=== PATIENT | male | born 1950 | race Caucasian/White ===

== ENCOUNTER → 2021-01-03 09:18 | Outpatient (CLI) | payer MEDICARE, SELFPAY | PROVIDERS: PCP Family Medicine; Visit Provider Family Medicine | DX: Z20.822 Contact with and (suspected) exposure to COVID-19 (principal) | CPT/HCPCS: U0003 ==

== ENCOUNTER → 2022-01-31 08:09 | Outpatient (CLI) | payer MEDICARE, SELFPAY | PROVIDERS: PCP Family Medicine; Visit Provider Family Medicine | DX: Z11.52 Encounter for screening for COVID-19 (principal) | CPT/HCPCS: C9803; U0003; U0005 ==

== ENCOUNTER 2024-06-16 10:08 | Outpatient (CLI) | payer MEDICARE, SELFPAY ==
--- NOTE | 2024-06-16 10:20 | CT_ITS ---
FINAL REPORT TECHNIQUE: Postcontrast images of the left upper extremity were performed by computed tomography. Extensive 3-D reconstruction images were performed. A CTA was performed. This study was performed with techniques to keep radiation doses as low as reasonably achievable (ALARA). Individualized dose reduction techniques using automated exposure control or adjustment of mA and/or kV according to the patient''s size were employed. CLINICAL HISTORY: LUE, CELLULITIS COMPARISON: None FINDINGS: CTA: The subclavian, brachial, radial, and ulnar arteries are patent without evidence of stenosis or occlusion. Bony structures: There is no evidence of fracture. No dislocation is seen. There are moderate degenerative changes in the shoulder. Soft tissues: Posteriorly, there is significant soft tissue swelling overlying the olecranon. This may be due to bursitis or cellulitis. There is a 4.7 cm low-attenuation mass posterior to the olecranon which may represent olecranon bursitis or possible abscess. IMPRESSION: 4.7 cm mass posterior to the olecranon may represent olecranon bursitis or possible abscess. Soft tissue swelling overlying the olecranon may represent bursitis or cellulitis. Reviewed, Interpreted and Dictated by Brent Bejarano III, MD Transcribed by Sintia Wilson Authenticated and [facility]
[2024-06-16] MEDS: SODIUM CHLORIDE 0.9% 10ML SYR (RAD ONLY) 10 ML IV (11:27)
[2024-06-16] MEDS: IOPAMIDOL-370 (76%);100ML BOTTLE 100 ML IV (11:27)
[2024-06-16] MEDS: 0.9 % SODIUM CHLORIDE 50 ML VIAL IV (11:27)
== END 2024-06-16 23:59 | disposition home or self-care (01) ==
LOC: RAD 10:09
PROVIDERS: PCP Family Medicine; Visit Provider Family Medicine
DX: L03.114 Cellulitis of left upper limb (principal)
CPT/HCPCS: 73206; Q9967

== ENCOUNTER 2025-06-03 12:40 | Outpatient (CLI) | payer MEDICARE, SELFPAY ==
--- OUTSIDE RECORDS SUMMARY | 2025-05-12 10:30 | XMS_ITS | Encounter Summary ---
Author Organization [facility] Address [address] [place] [address] Care Team Providers Care Home Care Consultant Name Role Phone London Blank MD Primary Care Provider [phone] [phone] Reason for Visit * Reason Comments Mixed hyperlipidemia Encounter Details Date Type Department Care Team (Late st Contact Info) Description 05/12/2025 10:30 AM EDT Office Visit [facility] CARDIOLOGY [address] [place] [phone] Gareth Alvarado MD [address] [facility] [address] [place] [address] RBBB (Primary Dx); Primary hypertension; Mixed hyperlipidemia Social History Tobacco Use Types Packs/Day Years Used Date Smoking Tobacco: Never Passive Smoke Exposure: Never Smokeless Tobacco: Never Alcohol Use Standard Drinks/Week Comments Yes 2 (1 standard drink = 0.6 oz pur e alcohol) OCASSIONALLY AUDIT-C Answer Date Recorded Frequency of Alcohol Consumption Not on file 12/01/2020 Q2: How many drinks containi ng alcohol do you have on a typical day when you are drinking? 1 or 2 12/01/2020 Frequency of Binge Drinking Not on file 11/07 Sex and Gender Information Value Date Recorded Sex Assigned at Not on file Legal Sex Male 1:08 PM EDT Gender Identity Not on file Sexual Orientation Not on file documented as of this encounter Last Filed Vital Signs Vital Sign Reading Time Taken Comments Blood Pressure 160/94 05/12/2025 10:22 AM EDT Pulse 48 05/12/2025 10:22 AM EDT Temperature - - Respiratory Rate - - Oxygen Saturation 98% 05/12/2025 10:22 AM EDT Inhaled Oxygen Concentration - - Weight 96 kg (211 lb 9.6 oz) 05/12/2025 10:22 AM EDT Height 194.3 cm (6' 4.5 ) 05/12/2025 10:22 AM ED T Body Mass Index 25.42 05/12/2025 10:22 AM EDT documented in this encounter Progress Notes * Gareth Alvarado MD - 05/12/2025 10:30 AM EDTAssociated Order(s): ECG 12 Lead Post-Procedure Diagnose(s): RBBB [facility] Cardiology Office Progress Note Ranjan Sanchez 1950 [address] [facility] [address] [place] [id number] Visit Date: 05/12/25 PCP: London Blank MD [address] [facility] [address] [place] [address] IDENTIFICATION: 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 formally from [facility] PROBLEM LIST: HTN HLD 12/23 126/76/33/78 Remote cardiac eval SJ H remote stress test, echo, Holter-benign 12/18/2018 CUS bilateral ICA 0 to 49% stenosis BPH GERD RBBB 2021 Surgical history: Blepharoplasty Prostate biopsy Minor back surgery Cholecystectomy CC: Chief Complaint Patient presents with Mixed hyperlipidemia Allergies No Known Allergies Current Medications Current Outpatient Medications Medication Instructions aspirin 81 mg, Daily cholecalciferol (VITAMIN D3) 1,000 Units, Daily Cobalamin Combinations (B-12) 100-5000 MCG sublingual tablet Daily coenzyme Q10 100 mg, Daily diazePAM (VALIUM) 5 MG tablet As Needed esomeprazole (nexIUM) 40 MG capsule take 1 capsule by mouth once daily fexofenadine (NOVA) 180 MG tablet Daily finasteride (PROPECIA) 1 MG tablet TAKE 1/4 TABLET BY MOUTH ONCE DAILY DIRECTED losartan (COZAAR) 100 MG tablet Daily naproxen (NAPROSYN) 500 MG tablet 1 tablet, Every 12 Hours Scheduled pregabalin (LYRICA) 150 mg, 2 Times Daily Probiotic Product (PROBIOTIC ADVANCED PO) 1 tablet, Daily rosuvastatin (CRESTOR) 5 mg, 3 Times Weekly sertraline (ZOLOFT) 25 mg, Daily Sodium Sulfate-Mag Sulfate-KCl (SUTAB) 0075-264-204 MG tablet 24 tablets, Oral, Take As Directed triamterene-hydrochlorothiazide (MAXZIDE-25) 37.5-25 MG per tablet 0.5 tablets, Daily History of Present Illness Ranjan Sanchez is a 75 y.o. year old male here for follow up. Remains active wyf-os-fptmp does travel to [place] typically every spring. 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 Did notice decreased his losartan this summer with being out [id number] OBJECTIVE: Vitals: 05/12/25 1022 BP: 160/94 BP Location: Left arm Patient Position: Sitting Cuff Size: Adult Pulse: (!) 48 SpO2: 98% Weight: 96 kg (211 lb 9.6 oz) Height: 194.3 cm (76.5 ) Body mass index is 25.42 kg/m??. Constitutional: Appearance: Healthy appearance. Not in distress. Neck: Vascular: No JVR. JVD normal. Pulmonary: Effort: Pulmonary effort is normal. Breath sounds: Normal breath sounds. No wheezing. No rhonchi. No rales. Chest: Chest wall: Not tender to palpatation. Cardiovascular: PMI at left midclavicular line. Bradycardia present. Regular rhythm. Normal S1. Normal S2. Murmurs: There is no murmur. No gallop. No click. No rub. Pulses: Intact distal pulses. Edema: Peripheral edema absent. Abdominal: General: Bowel sounds are normal. Palpations: Abdomen is soft. Tenderness: There is no abdominal tenderness. Musculoskeletal: Normal range of motion. General: No tenderness. Skin: General: Skin is warm and dry. Neurological: General: No focal deficit present. Mental Status: Alert and oriented to person, place and time. Diagnostic Data: ECG 12 Lead Date/Time: 05/12/2025 10:48 AM Performed by: Gareth Alvarado MD Authorized by: Gareth Alvarado MD Comparison: compared with previous ECG from 12/23/2021 Similar to previous ECG Rhythm: sinus rhythm BPM: 48 Conduction: right bundle branch block Clinical impression: abnormal EKG ASSESSMENT: Diagnosis Plan 1. RBBB 2. Primary hypertension 3. Mixed hyperlipidemia PLAN: Right bundle branch block with resting bradycardia asymptomatic continued observation Mixed dyslipidemia controlled currently on statin therapy for follow-up lab work per PCP Hypertension controlled currently on losartan Gareth Alvarado MD, [facility] documented in this encounter Plan of Treatment Upcoming Encounters Date Type Department Care Team (Late st Contact Info) Description 08/18/2026 9:30 AM EST Office Visit [facility] CARDIOLOGY [address] [place] [address] Gareth Alvarado MD [address] [address] [place] [address] documented as of this encounter Procedures Procedure Name Priority Date/Time Associated Diagnosis Comments ECG 12-LEAD Routine 05/12/2025 RBBB documented in this encounter Results * ECG 12-LEAD (05/12/2025) Narrative 05/12/2025 Gareth Alvarado MD 05/12/2025 10:50 AM ECG 12 Lead Date/Time: 05/12/2025 10:48 AM Performed by: Gareth Alvarado MD Authorized by: Gareth Alvarado MD Comparison: compared with previous ECG from 12/23/2021 Similar to previous ECG Rhythm: sinus rhythm BPM: 48 Conduction: right bundle branch block Clinical impression: abnormal EKG Procedure Note Gareth Alvarado MD - 05/12/2025 10:30 AM EDT [facility] Cardiology Office Progress Note Ranjan Sanchez 1950 [address] [place] [address] Visit Date: 05/12/25 PCP: London Blank MD [address] [place] [address] [place] [address] IDENTIFICATION: 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 [facility] PROBLEM LIST: HTN HLD 12/23 126/76/33/78 Remote cardiac eval SJ H remote stress test, echo, Holter-benign 12/18/2018 CUS bilateral ICA 0 to 49% stenosis BPH GERD RBBB 2021 Surgical history: Blepharoplasty Prostate biopsy Minor back surgery Cholecystectomy CC: Chief Complaint Patient presents with Mixed hyperlipidemia Allergies No Known Allergies Current Medications Current Outpatient Medications Medication Instructions aspirin 81 mg, Daily cholecalciferol (VITAMIN D3) 1,000 Units, Daily Cobalamin Combinations (B-12) 100-5000 MCG sublingual tablet Daily coenzyme Q10 100 mg, Daily diazePAM (VALIUM) 5 MG tablet As Needed esomeprazole (nexIUM) 40 MG capsule take 1 capsule by mouth once daily fexofenadine (NOVA) 180 MG tablet Daily finasteride (PROPECIA) 1 MG tablet TAKE 1/4 TABLET BY MOUTH ONCE DAILY ASDIRECTED losartan (COZAAR) 100 MG tablet Daily naproxen (NAPROSYN) 500 MG tablet 1 tablet, Every 12 Hours Scheduled pregabalin (LYRICA) 150 mg, 2 Times Daily Probiotic Product (PROBIOTIC ADVANCED PO) 1 tablet, Daily rosuvastatin (CRESTOR) 5 mg, 3 Times Weekly sertraline (ZOLOFT) 25 mg, Daily Sodium Sulfate-Mag Sulfate-KCl (SUTAB) 3832-727-250 MG tablet 24 tablets,Oral, Take As Directed triamterene-hydrochlorothiazide (MAXZIDE-25) 37.5-25 MG per tablet 0.5tablets, Daily History of Present Illness Ranjan Sanchez is a 75 y.o. year old male here for follow up. Remains active sgm-ow-viiks [facility] [place]. 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 Did notice decreased his losartan thissummer with being out [id number] OBJECTIVE: Vitals: 05/12/25 1022 BP: 160/94 BP Location: Left arm Patient Position: Sitting Cuff Size: Adult Pulse: (!) 48 SpO2: 98% Weight: 96 kg (211 lb 9.6 oz) Height: 194.3 cm (76.5 ) Body mass index is 25.42 kg/m . Constitutional: Appearance: Healthy appearance. Not in distress. Neck: Vascular: No JVR. JVD normal. Pulmonary: Effort: Pulmonary effort is normal. Breath sounds: Normal breath sounds. No wheezing. No rhonchi. No rales. Chest: Chest wall: Not tender to palpatation. Cardiovascular: PMI at left midclavicular line. Bradycardia present. Regular rhythm.Normal S1. Normal S2. Murmurs: There is no murmur. No gallop. No click. No rub. Pulses: Intact distal pulses. Edema: Peripheral edema absent. Abdominal: General: Bowel sounds are normal. Palpations: Abdomen is soft. Tenderness: There is no abdominal tenderness. Musculoskeletal: Normal range of motion. General: No tenderness. Skin: General: Skin is warm and dry. Neurological: General: No focal deficit present. Mental Status: Alert and oriented to person, place and time. Diagnostic Data: ECG 12 Lead Date/Time: 05/12/2025 10:48 AM Performed by: Gareth Alvarado MD Authorized by: Gareth Alvarado MD Comparison: compared with previous ECGfrom 12/23/2021 Similar to previous ECG Rhythm: sinus rhythm BPM: 48 Conduction: right bundle branch block Clinical impression: abnormal EKG ASSESSMENT: Diagnosis Plan 1. RBBB 2. Primary hypertension 3. Mixed hyperlipidemia PLAN: Right bundle branch block with resting bradycardia asymptomatic continuedobservation Mixed dyslipidemia controlled currently on statin therapy for follow-uplab work per PCP Hypertension controlled currently on losartan Gareth Alvarado MD, [facility] Gareth Alvarado MD ECG ORDERABLES Final Result documented in this encounter Visit Diagnoses Diagnosis RBBB- Primary Primary hypertension Unspecified essential hypertension Mixed hyperlipidemia documented in this encounter Care Teams Home Care Consultant Relationship Specialty Start Date End Date London Blank MD [address] [place] [address] [address] [facility] 2 [place] [address] PCP - General Family Medicine 11/13/18 documented as of this encounter
--- NOTE | 2025-06-03 12:43 | MR_ITS ---
FINAL REPORT TECHNIQUE: Multiplanar and multisequence imaging the right knee was obtained without contrast. CLINICAL HISTORY: ARTHROPATHY OF RT KNEE fall 2-3 months ago, cannot fully bend knee FINDINGS: Bones: There is no acute fracture or marrow edema. The joint space is preserved. There are no full thickness cartilage defects. Menisci: Complex tear at the posterior horn of the medial meniscus which extends to the root attachment. Anterior horn intact. Lateral meniscus intact. Ligaments: There is an MCL sprain or partial tear. Lateral collateral ligament is intact. Tendons/Muscles: The quadriceps and patellar tendons are within normal limits. The biceps femoris tendon and iliotibial tract are intact. The popliteus tendon is normal. Other: There is a small joint effusion. There is mild prepatellar edema. Remaining soft tissues are normal. IMPRESSION: Complex tear at the posterior horn of the medial meniscus. Sprain or partial tear of the MCL. Mild degenerative disease. Reviewed, Interpreted and Dictated by Deisy Mendieta MD Transcribed by Nia Lopez Authenticated and . [facility]
--- OUTSIDE RECORDS SUMMARY | 2025-06-03 12:43 | XMS_ITS ---
Author Organization Unknown Vital Signs BpStanding BpSitting BpSupine Date Temperature HeartRate Weight Hei ght Spo2 Respiration Bmi HeadCircumference FieldCount TimeRecorded NeckCircumferen ce WaistCircumference Pulse 130/90 03/18 00:00 :00 97.9 48 212,3.2 0 6,5 25.1 6 6 04/28/2025 10:45:00 130/80 02/04 00:00 :00 98.4 56 217,6.4 0 6,5 25.7 8 6 04/28/2025 10:45:00 130/76 12/24 00:00 :00 97.5 53 222,6.4 0 6,5 26.3 7 6 04/28/2025 11:45:00 130/80 12/17 00:00 :00 98.7 54 222,0 6,5 26.3 2 6 04/28/2025 11:45:00 140/80 12/03 00:00 :00 98.4 58 222,6.4 0 6,5 26.3 7 6 04/28/2025 09:30:00 120/86 08/27 00:00 :00 98.1 56 219,3.2 0 6,5 25.9 9 6 04/28/2025 10:30:00 120/80 07/19 00:00 :00 97.8 55 212,0 6,5 25.1 4 6 04/28/2025 13:00:00 122/80 06/21 00:00 :00 97.6 56 210,6.4 0 6,5 24.9 5 6 04/28/2025 13:00:00 130/90 06/14 00:00 :00 98.0 56 211,9.6 0 6,5 25.0 9 6 04/28/2025 13:00:00
--- OUTSIDE RECORDS SUMMARY | 2025-06-03 12:43 | XMS_ITS | Clinical Summary ---
Author Organization [facility] Address [address] [place] [address] Care Team Providers Care Cashier Credit Name Role Phone London Blank MD Primary Care Provider [phone] [phone] Allergies No known active allergies Medications esomeprazole (nexIUM) 40 MG capsule take 1 capsule by mouth once daily 30 capsule 3 07/25/20 17 Active pregabalin (LYRICA) 150 MG capsule 1 capsule 2 (Two) Times a Day. Active rosuvastatin (CRESTOR) 5 MG tablet 1 tablet 3 (Three) Times a Week. 3 TIMES A WEEK 0 09/25/20 18 Active fexofenadine (NOVA) 180 MG tablet Daily. Active cholecalciferol (VITAMIN D3) 1000 units tablet Take 1 tablet by mouth Daily. Active coenzyme Q10 100 MG capsule Take 1 capsule by mouth Daily. Active diazePAM (VALIUM) 5 MG tablet As Needed. 08/31/20 19 Active losartan (COZAAR) 100 MG tablet Daily. 11/29/19 21 Active aspirin 81 MG EC tablet 1 tablet Daily. Active Cobalamin Combinations (B-12) 100-5000 MCG sublingual tablet Daily. Active finasteride (PROPECIA) 1 MG tablet TAKE 1/4 TABLET BY MOUTH ONCE DAILY DIRECTED 12/07/19 22 Active triamterene-hydr ochlorothiazide (MAXZIDE-25) 37.5-25 MG per tablet Take 0.5 tablets by mouth Daily. 12/29/19 24 Active sertraline (ZOLOFT) 50 MG tablet Take 0.5 tablets by mouth Daily. 03/01/20 25 Active Probiotic Product (PROBIOTIC ADVANCED PO) Take 1 tablet by mouth Daily. Active naproxen (NAPROSYN) 500 MG tablet Take 1 tablet by mouth Every 12 (Twelve) Hours. 01/13/20 24 025 Discontinued Sodium Sulfate-Mag Sulfate-KCl (SUTAB) 3921-807-478 MG tablet Take 24 tablets by mouth Take As Directed. 24 tablet 02/26/20 24 025 Discontinued Active Problems No known active problems Encounters Date Type Department Care Team Description 05/23/2025 Telephone [facility] CARDIOLOGY [address] [facility] [address] [place] [phone] Gareth Alvarado MD 05/12/2025 10:30 AM EDT Office Visit [facility] CARDIOLOGY [address] [facility] [address] [place] [address] Gareth Alvarado MD RBBB (Primary Dx); Primary hypertension; Mixed hyperlipidemia 05/12/2025 Travel 05/11/2025 Telephone [facility] CARDIOLOGY [address] [facility] [address] [place] [address] Gareth Alvarado MD Medication Reconciliation from Last 3 Months Family History Medical History Relation Name Comments Multiple sclerosis Brother Hypertension Father Giorgi Hypertension la ter in life COPD Mother Kiley Colon polyps Mother Kiley Heart disease Mother Kiley Some heart iss ues late in life; also hypertension Heart disease Sister Consuelo Congenital hea rt defect with open heart surgery; also some ither issues lately Heart failure Sister Consuelo Colon cancer Neg Hx Esophageal cancer Neg Hx Relation Name Status Comments Brother Alive Father Giorgi Alive Mother Kiley Sister Consuelo Alive Social History Tobacco Use Types Packs/Day Years [...] on file Sexual Orientation Not on file Last Filed Vital Signs Vital Sign Reading Time Taken Comments Blood Pressure 160/94 05/12/2025 10:22 AM EDT Pulse 48 05/12/2025 10:22 AM EDT Temperature 36.6 C (97.8 F) 11/12/2023 11:49 AM EST Respiratory Rate 18 11/12/2023 11:49 AM EST Oxygen Saturation 98% 05/12/2025 10:22 AM EDT Inhaled Oxygen Concentration - - Weight 96 kg (211 lb 9.6 oz) 05/12/2025 10:22 AM EDT Height 194.3 cm (6' 4.5 ) 05/12/2025 10:22 AM ED T Body Mass Index 25.42 05/12/2025 10:22 AM EDT Plan of Treatment Upcoming Encounters Date Type Department Care Team (Late st Contact Info) Description 08/18/2026 9:30 AM EST Office Visit [facility] CARDIOLOGY [address] [place] [address] Gareth Alvarado MD [address] [place] [address] Health Maintenance Due Date Last Done Comments COLOGUARD 01/04/1997 COLON CANCER SCREENING 5 YEA R SIGMOIDOSCOPY 01/04/1997 CT COLONOGRAPHY 01/04/1997 FECAL OCCULT BLOOD TEST 01/04/1997 FIT Testing (1 year) 01/04/1997 ZOSTER VACCINE (1 of 2) 01/04/2002 ANNUAL WELLNESS VISIT 07/17/2017 HEPATITIS C SCREENING 07/17/2017 COVID-19 Vaccine (2023-2 5 season) 2024 04/05/2022, 08/08/2021, 11/15/2020, Additional history exists LIPID PANEL 08/21/2024 08/21/2023, 06/06, 02/09/2021, Additional history exists INFLUENZA VACCINE 07/06/2025 08/21/2023, , 07/31/2022, Additional history exists COLONOSCOPY 03/05/2027 03/05/2024, 02/0 10/2020, 11/06/2020, Additional history exists COLORECTAL CANCER SCREENING 03/05/2027 TDAP/TD VACCINES (2 - Td or Tdap) 01/24/2028 018 Pneumococcal Vaccine 50+ Completed 01/29/2019, 01/05 Procedures Procedure Name Priority Date/Time Associated Diagnosis Comments SCANNED - LABS 05/13/2025 ECG 12-LEAD Routine 05/12/2025 RBBB SCANNED - COLONOSCOPY 03/05/2024 from Last 3 Months or Most Recently Relevant to Health Maintenance Results * LABS SCANNED (05/13/2025) [facility] LAB BLOOD ORDERABLES Final Re sult * ECG 12-LEAD (05/12/2025) Narrative 05/12/2025 Gareth [...] Alvarado MD - 05/12/2025 10:30 AM EDT [facility] Cardiology Office Progress Note Ranjan Sanchez 1950 [address] [facility] [address] Visit Date: 05/12/25 PCP: London Blank MD [address] [place] [address] [facility] [address] 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 year old male here for follow up. Remains active [id number] [place] [facility] [place] [facility] 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 Did notice decreased his losartan thissummer with being out [id number] OBJECTIVE: Vitals: 05/12/25 1022 BP: 160/94 BP [...] controlled currently on losartan Gareth Alvarado MD, [facility] Gareth Alvarado MD ECG ORDERABLES Final Result * Colonoscopy, Scan (03/05/2024) Landon Haro MD CHART REVIEW TABS Final Result from Last 3 Months or Most Recently Relevant to Health Maintenance Insurance MEDICARE A & [address] [place] [address] HEALTH CARE OPTIONS Care Teams Cashier Credit Relationship Specialty Start Date End Date London Blank MD [facility] [address] [place] [address] PCP - General Family Medicine 11/13/18
--- OUTSIDE RECORDS SUMMARY | 2025-06-03 12:43 | XMS_ITS | Encounter Summary ---
Author Organization [facility] Address [address] [place] [address] Care Team Providers Care Crusher And Blender Operator Name Role Phone London Blank MD Primary Care Provider [phone] [phone] Encounter Details Date Type Department Care Team (Latest Contact Info) Description 05/12/2025 Travel Social History Tobacco Use Types Packs/Day Years [...] Frequency of Binge Drinking Not on file /03/2021 Sex and Gender Information Value Date Recorded Sex Assigned at Not on file Legal Sex Male 1:08 PM EDT Gender Identity Not on file Sexual Orientation Not on file documented as of this encounter Plan of Treatment Upcoming Encounters Date Type Department Care Team (Late st Contact Info) Description 08/18/2026 9:30 AM EST Office Visit [facility] CARDIOLOGY [address] [place] [address] Gareth Alvarado MD [address] [place] [address] documented as of this encounter Visit Diagnoses Not on filedocumented in this encounter Care Teams Crusher And Blender Operator Relationship Specialty Start Date End Date London Blank MD [address] [facility] [address] [place] [address] PCP - General Family Medicine 11/13/18 documented as of this encounter
--- OUTSIDE RECORDS SUMMARY | 2025-06-03 12:43 | XMS_ITS | Encounter Summary ---
Author Organization [facility] Address [address] [place] [address] Care Team Providers Care Employee Relations Specialist Name Role Phone London Blank MD Primary Care Provider [phone] Reason for Visit * Reason Onset Date Comments Medication Reconciliation 05/11/2025 Encounter Details Date Type Department Care Team (Late st Contact Info) Description 05/11/2025 Telephone [facility] CARDIOLOGY [address] [place] [phone] Gareth Alvarado MD [address] [facility] [address] [place] [address] Medication Reconciliation Social History Tobacco Use Types Packs/Day Years [...] on file documented as of this encounter Miscellaneous Notes * Telephone Encounter - Skip Montero CMA - 05/11/2025 9:13 AM EDT Medication reconciliation completed with patient. documented in this encounter Plan of Treatment Upcoming Encounters Date Type Department Care Team (Late st Contact Info) Description 08/18/2026 9:30 AM EST Office Visit [facility] CARDIOLOGY [address] [place] [address] Gareth Alvarado MD [address] [place] [address] documented as of this encounter Visit Diagnoses Not on filedocumented in this encounter Care Teams Employee Relations Specialist Relationship Specialty Start Date End Date London Blank MD [address] [facility] [address] [place] [address] PCP - General Family Medicine 11/13/18 documented as of this encounter
--- OUTSIDE RECORDS SUMMARY | 2025-06-03 12:43 | XMS_ITS | Encounter Summary ---
[facility] Address [address] [place] [address] Care Team Providers Care Porcelain Waxer Name Role Phone London Blank MD Primary Care Provider [phone] Encounter Details Date Type Department Care Team (Late st Contact Info) Description 05/23/2025 Telephone [facility] [address] [facility] [address] [place] [address] Gareth Alvarado MD [address] [facility] [address] [place] [address] Social History Tobacco Use Types Packs/Day Years [...] encounter Miscellaneous Notes * Telephone Encounter - Diamante Cerrato RN - 05/23/2025 2:27 PM EDT Spoke with patient regarding results, pt verbalizes understanding. * Telephone Encounter - Diamante Cerrato RN - 05/23/2025 2:27 PM EDT ----- Message from Gareth Alvarado sent at 05/17/2025 2:58 PM EDT ----- Thanks for getting the lipid profile LDL 84 continue current Rx ----- Message ----- From: Renea Silva Sent: 05/16/2025 3:40 PM EDT To: Gareth Alvarado MD documented in this encounter Plan of Treatment Upcoming Encounters Date Type Department Care Team (Late st Contact Info) Description 08/18/2026 9:30 AM EST Office Visit [facility] [address] [facility] [address] [place] [address] Gareth Alvarado MD [address] [facility] [address] [place] [address] documented as of this encounter Visit Diagnoses Not on filedocumented in this encounter Care Teams Porcelain Waxer Relationship Specialty Start Date End Date London Blank MD [address] [facility] [address] [facility] [place] [id number] PCP - General Family Medicine 11/13/18 documented as of this encounter
--- OUTSIDE RECORDS SUMMARY | 2025-06-03 12:43 | XMS_ITS | Clinical Summary ---
Author Organization [facility] Address [address] [place] [address] Care Team Providers Care Ssis Architect Name Role Phone Unavailable Primary Care Provider Unavailabl e Social History Tobacco Use Types Packs/Day Years Used Date Smoking Tobacco: Never Assessed Sex and Gender Information Value Date Recorded Sex Assigned at Not on file Legal Sex Male 8:00 PM EDT Gender Identity Not on file Sexual Orientation Not on file Plan of Treatment Health Maintenance Due Date Last Done Comments [facility]-Depression Screening 1950 [facility]-Infant/Child/Adol SDOH Screenings 1950 [facility]- SDOH Screenings 01/04/1970 [facility]-Adult SDOH Screenings 01/04/1970 [facility]-DTaP,Tdap,and Td Vaccine s (1 - Tdap) 01/04/1971 CT Colonography 01/04/1997 Colonoscopy 01/04/1997 FIT-DNA 01/04/1997 FIT 01/04/1997 FOBT 01/04/1997 Sigmoidoscopy 01/04/1997 [facility]-Colorectal Cancer Screening 01/04/1997 [facility]-Pneumococcal Vaccine: 50 + Years (1 of 1 - PCV) 01/04/2002 [facility]-Zoster Vaccines (1 of 2) 01/04/2002 [id number] Vaccine (1 - 20 24-25 season) 2024 [facility]-Influenza Vaccine (#1) 2025 [facility]-RSV Vaccine: 60+ Years o r (1 - 1-dose 75+ series) 01/04/2027 HPV Vaccines Aged Out No longer eligi ble based on patient's age to complete this topic [facility]-HIB Vaccines Aged Out No longer e ligible based on patient's age to complete this topic [facility]-Hepatitis A Vaccines Aged Out No longer eligible based on patient's age to complete this topic [facility]-IPV Vaccines Aged Out No longer e ligible based on patient's age to complete this topic [facility]-Rotavirus Vaccines Aged Out No lo nger eligible based on patient's age to complete this topic
--- OUTSIDE RECORDS SUMMARY | 2025-06-03 12:44 | XMS_ITS | Clinical Summary ---
Author Organization [facility] Address [address] [place] [address] Care Team Providers Care Rent And Miscellaneous Remittance Clerk Name Role Phone London Blank MD Primary Care Provider [phone] Social History Tobacco Use Types Packs/Day Years Used Date Smoking Tobacco: Never Assessed Sex and Gender Information Value Date Recorded Sex Assigned at Not on file Legal Sex Male 7:10 PM EST Gender Identity Not on file Sexual Orientation Not on file Plan of Treatment Not on file Insurance ANTHEM Care Teams Rent And Miscellaneous Remittance Clerk Relationship Specialty Start Date End Date London Blank MD [address] [place] [id number] PCP - General Family Medicine 03/25/11
== END 2025-06-03 23:59 | disposition home or self-care (01) ==
LOC: RAD 12:41
PROVIDERS: PCP Family Medicine; Visit Provider Family Medicine
DX: S83.231A Complex tear of medial meniscus, current injury, right knee, initial encounter (principal); M17.11 Unilateral primary osteoarthritis, right knee; R93.6 Abnormal findings on diagnostic imaging of limbs; W19.XXXA Unspecified fall, initial encounter
CPT/HCPCS: 73721